=== PATIENT | female | born 1940 | race Asian ===

== ENCOUNTER 2016-10-13 09:21 | Inpatient (IN) | payer MEDICARE, BC ==
[~2016-10-13] VITALS: Ht 154.9 cm; Wt 42.0 kg
--- NOTE | ~2016-10-13 | CR72 ---
[facility] A Service of [facility] & [facility] RADIOLOGY TEXT RESULTS PATIENT: BALBIR COLLAZO LOCATION: [place] [address]- : 38 UNIT #: [id number] AGE: [address]: Jamir Roche MD SEX: F ORDER DR: [id number] [facility] [address] [place], [place] [address] [id number] I MR#: [id number] Acc #: [id number] NAME: BALBIR COLLAZO : 1940 SEX: F STUDY DATE/TIME: 10/16/2016 5:59 UNIT: [facility] ROOM: [facility] STUDY DESCRIPTION: CR Chest Single View Portable Attending Physician: Jamir Roche M.D. Ordering Physician: Rossy Ruiz M.D. Primary Care Physician: Celio George M.D. MEDICAL IMAGING REPORT This report is preliminary unless electronic signature is present EXAM Single view of the chest, 10/16/2016 at 05:59 hours COMPARISON Single view chest, 10/13/2016 at 10:24 hours HISTORY Colon cancer with COPD, shortness of air and cough for the last three days. FINDINGS Single view of the chest was obtained. Lungs are hyperinflated suggestive of emphysematous changes. Previously noted calcified right upper lobe lung nodule measuring 1.1 cm is again noted suggestive of old granulomatous disease. No superimposed significant new abnormality is seen. There is stable prominent irregular opacity noted in the left hilum. The CT angiogram chest from three days ago did demonstrate patchy alveolar infiltrate in the left upper lobe extending from the left hilum. The hilar appearance does not appear to have significantly changed when compared to the prior chest x-ray. Cardiac size is within normal limits. There is mild prominence of the interstitial markings, stable since prior study. No significant new abnormality. No pleural effusion or pneumothorax. Dictated by... Eleonora Britton M.D. THIS IS AN ELECTRONICALLY VERIFIED REPORT Eleonora Britton M.D. at 10/18/2016 5:22 PM CPR/isabel TD: 10/16/2016 10:46 [facility] A Service of [facility] & [facility] RADIOLOGY TEXT RESULTS PATIENT: BALBIR COLLAZO LOCATION: [address] 562-01 : 38 UNIT #: [id number] AGE: [address]: Jamir Roche MD SEX: F ORDER DR: JOB #: [id number] MEDICAL IMAGING REPORT Page 1 of 1 COPY
--- NOTE | ~2016-10-13 | CT16 ---
[facility] A Service of [facility] & [facility] RADIOLOGY TEXT RESULTS PATIENT: BALBIR COLLAZO LOCATION: [facility]- : 38 UNIT #: [id number] AGE: [address]: Jamir Roche MD SEX: F ORDER DR: [id number] [facility] [address] [place], [place] [address] [id number] I MR#: [id number] Acc #: [id number] NAME: BALBIR COLLAZO : 1940 SEX: F STUDY DATE/TIME: 10/13/2016 12:16 UNIT: [facility] ROOM: [facility] STUDY DESCRIPTION: CT Angio Chest for PE Attending Physician: Jamir Roche M.D. Ordering Physician: Chris Stanley D.O. Primary Care Physician: Celio George M.D. MEDICAL IMAGING REPORT This report is preliminary unless electronic signature is present EXAM CT angiogram chest with IV contrast HISTORY Left side chest pain today. Shortness of air for 2 days. Elevated D-dimer. TECHNIQUE IV contrast enhanced CT angiogram of the chest was performed with 3-D reconstructions. This CT exam was performed with one or more of the following radiation dose reduction techniques: automatic exposure control, adjustment of mA and/or kV according to patient size, and iterative reconstruction. FINDINGS There is no evidence of pulmonary embolus. Single, mildly enlarged aortopulmonic window lymph node measures 1.1 cm and could be reactive or inflammatory. Dense subsegmental infiltrate and probable associated atelectasis in the inferomedial left upper lobe extending to the anterior left hilum and corresponding to the perihilar density on chest x-ray earlier today. This could be secondary to pneumonia, but is nonspecific and short-term follow-up chest x-ray is recommended to document resolution after appropriate assessment and treatment. Extensive bilateral emphysema with moderate diffuse interstitial fibrotic scarring. Additional, more focal scarring in the lung apices. Calcified granuloma posterior right upper lobe. Small calcified mediastinal and hilar nodes. Normal caliber thoracic aorta. IMPRESSION 1. No evidence of pulmonary embolus. 2. Focal dense subsegmental infiltrate and probable associated STS. [facility] A Service of [facility] & [facility] RADIOLOGY TEXT RESULTS PATIENT: BALBIR COLLAZO [id number] 36 UNIT #: [id number] AGE: [address]: Jamir Roche MD SEX: F ORDER DR: atelectasis in the inferomedial left upper lobe abutting the anterior margin of the left hilum, corresponding to the abnormality on chest x-ray earlier today. This is nonspecific but could be due to pneumonia. Followup to resolution is recommended with repeat chest x-ray after appropriate assessment and treatment. 3. Single, mildly enlarged aortopulmonic window lymph node measures 1.1 cm and could be reactive or inflammatory. 4. Advanced bilateral emphysema. Dictated by... Roman Chu M.D. THIS IS AN ELECTRONICALLY VERIFIED REPORT Roman Chu M.D. at 10/14/2016 3:51 PM DFL/pcl TD: 10/14/2016 15:31 JOB #: [id number] MEDICAL IMAGING REPORT Page 1 of 1 COPY
--- NOTE | ~2016-10-13 | EKG ---
PATIENT: BALBIR COLLAZO UNIT #: [id number] Ventricular Rate: 82 BPM Atrial Rate: 82 BPM P-R Interval: 128 ms QRS Duration: 84 ms Q-T Interval: 338 ms QTC Calculation(Bezet): 394 ms P [place]: 81 degrees Calculated R [place]: 92 degrees Calculated T [place]: 60 degrees Diagnosis Line: Normal sinus rhythm Diagnosis Line: Rightward axis Diagnosis Line: Borderline ECG Diagnosis Line: When compared with ECG of 19-JAN-2016 12:22, Diagnosis Line: No significant change was found Diagnosis Line: Confirmed by DOMINGO ABDI MD ([id number]) on 10/14/2016 Diagnosis Line: 3:04:06 PM INTERPRETING MD: JIN STONER
--- NOTE | ~2016-10-13 | A ---
[facility] Nutrition Therapy DATE: 10/15/16 Patient: BALBIR COLLAZO Physician: FREDI Address: [address] [place] [address] DRIVE Room/Bed: [address] [place] [address], Zip: [place] [address] Admit Date: 10/13/16 Date of : 38 Height: 5 1 Weight: 87 39.5 NUTRITIONAL ASSESSMENT: REASON: Low BMI 76 yo female admitted for SOB PMH: COPD, Afib, HTN, anxiety, respiratory failure, colon cancer s/p resection Anthropometrics: Ht: 5'1" Wt: 43.2 kg BMI: 18.0 IBW: 47.7 kg, 91% IBW Labs: K+ 5.3 Gluc 153 BUN 28 Meds: Protonix, ferrous gluconate, prednisone therapeutic formula, Os-phill + D I/O & Bowel function: 2780/ 720, last BM 10/13 Skin Integrity: no breakdown or edema noted Estimated Nutrition Needs: Increased due to low body weight Diet: Heart healthy Assessment: Chart reviewed, events noted. 76 yo female admitted for SOB. Pt also noted to have 2-3 day h/o dysphagia, which seems to be d/t sore throat per MD note. Previous RD notes reviewed, as the pt has been seen by [facility] RDs for low BMI previously. Pt's weights seem to have remained stable since most recent previous admission. RD spoke with the pt at bedside. Pt reports having a good appetite, stating that she has had decreased intake over the last couple of days d/t dysphagia. Pt reportedly takes her dentures out to eat. RD offered to order the pt a soft diet, and the pt denied a need for this. Pt drinks one Ensure per day at home. RD encouraged the pt to drink Ensure BID to promote weight gain. Pt voiced understand, and denied having any questions about her diet. Dx: Underweight RT PMH AEB BMI 18.0, 91% IBW. Intervention: 1. Heart healthy diet 2. Ensure BID Monitoring, Evaluation and Goals: 1. Oral intake; tolerate 50-100% of meals and supplements 2. Improve labs; K+, glucose, BUN 3. Weight; promote gradual weight gain [facility] Nutrition Therapy DATE: 10/15/16 Patient: BALBIR COLLAZO Physician: FREDI Address: [address] Room/Bed: [address] [place] [address], Zip: [place] [address] Admit Date: 10/13/16 Date of : 38 Height: 5 1 Weight: 87 39.5 Recommendations: 1. Continue heart healthy diet as tolerated. 2. Ensure strawberry BID for supplemental nutrition. 3. If dysphagia continues, consider QUALITY ASSURANCE SPECIALIST evaluation. Pt is at mild-moderate nutrtional risk. RD will follow up per protocol. Respectfully, KIERAN DEAN RD, LD Food and Nutritional Services [facility] cc: client file
--- NOTE | ~2016-10-13 | CR63 ---
[facility] A Service of [facility] & [facility] RADIOLOGY TEXT RESULTS PATIENT: BALBIR COLLAZO LOCATION: [facility] 562-01 : 38 UNIT #: [id number] AGE: [address]: Jamir Roche MD SEX: F ORDER DR: [id number] [facility] [address] [place], [place] [address] [id number] I MR#: [id number] Acc #: [id number] NAME: BALBIR COLLAZO : 1940 SEX: F STUDY DATE/TIME: 10/19/2016 7:21 UNIT: [facility] ROOM: [facility] STUDY DESCRIPTION: CR Chest 2 View Attending Physician: Jamir Roche M.D. Ordering Physician: Rossy Ruiz M.D. Primary Care Physician: Celio George M.D. MEDICAL IMAGING REPORT This report is preliminary unless electronic signature is present EXAM PA lateral chest DATE 10/19/2016 HISTORY Shortness of breath and cough since 10/13/2016. COPD. Atrial fibrillation. Hypertension. Smoking history, quit in 2006. COMPARISON AP portable chest 10/16/2016 FINDINGS Advanced emphysematous changes are present. Left perihilar - suprahilar band-like opacity has a similar appearance on this examination, and is thought to correspond to focal dense left upper lobe airspace disease, which is also seen on the previous CT chest from 10/13/2016. This finding appears slightly improved when compared to the chest radiograph of 10/13/2016. No new airspace disease is identified. No pleural effusion, pneumothorax or acute osseous abnormalities. IMPRESSION 1. Left upper lobe perihilar/suprahilar airspace disease which may represent changes of pneumonia. There appears to be slight improved aeration at this location when compared to the chest radiograph from 10/13/2016. Continued short-term radiographic followup to document continued improvement or resolution would be recommended. 2. Advanced emphysema. 3. Benign calcified granulomatous changes. Dictated by... Ammy Quevedo M.D. [facility] A Service of [facility] & [facility] RADIOLOGY TEXT RESULTS PATIENT: BALBIR COLLAZO LOCATION: [facility]- : 38 UNIT #: [id number] AGE: [address]: Jamir Roche MD SEX: F ORDER DR: THIS IS AN ELECTRONICALLY VERIFIED REPORT Ammy Quevedo M.D. at 10/20/2016 1:54 PM [facility]/stanley TD: 10/19/2016 21:31 JOB #: [id number] MEDICAL IMAGING REPORT Page 1 of 1 COPY
--- NOTE | ~2016-10-13 | EKG ---
PATIENT: BALBIR COLLAZO UNIT #: [id number] Ventricular Rate: 60 BPM Atrial Rate: 60 BPM P-R Interval: 154 ms QRS Duration: 84 ms Q-T Interval: 420 ms QTC Calculation(Bezet): 420 ms P [place]: 75 degrees Calculated R [place]: 91 degrees Calculated T [place]: 61 degrees Diagnosis Line: Sinus rhythm with occasional Premature ventricular Diagnosis Line: complexes Diagnosis Line: Rightward axis Diagnosis Line: lead interchange V1 and V3 Diagnosis Line: Borderline ECG Diagnosis Line: No previous ECGs available Diagnosis Line: Confirmed by DOMINGO ABDI MD ([id number]) on 10/14/2016 Diagnosis Line: 3:14:06 PM INTERPRETING MD: JIN STONER
--- NOTE | ~2016-10-13 | CR72 ---
[facility] A Service of [facility] & [facility] RADIOLOGY TEXT RESULTS PATIENT: BALBIR COLLAZO LOCATION: [facility] 56- : 38 UNIT #: [id number] AGE: [address]: Jaimr Roche MD SEX: F ORDER DR: [id number] [facility] [address] [place], [place] [address] [id number] I MR#: [id number] Acc #: [id number] NAME: BALBIR COLLAZO : 1940 SEX: F STUDY DATE/TIME: 10/13/2016 10:24 UNIT: [facility] ROOM: [facility] STUDY DESCRIPTION: CR Chest Single View Portable Attending Physician: Jamir Rohce M.D. Ordering Physician: Chris Stanley D.O. Primary Care Physician: Celio George M.D. MEDICAL IMAGING REPORT This report is preliminary unless electronic signature is present EXAM Portable chest. HISTORY Shortness of breath and left-sided chest pain for the past two days. COMPARISON 01/19/2016. TECHNIQUE Single AP view of the chest was obtained. FINDINGS Heart size is normal and no abnormal mediastinal widening is seen. There is a mass-like density at the left hilum that was not seen on the previous examination. Malignancy is not excluded. It measures approximately 3 cm in diameter. I recommend chest CT for further evaluation. It could also represent an area of consolidating pneumonia. There is also infiltrate seen in the left lower lung field probably in the lingula along the left heart border. It was not noted before. The right lung is clear and unchanged. Emphysematous changes are noted. Vascular markings are normal. IMPRESSION Abnormal left side. There is a dense area of consolidation or mass at the left hilum measuring about 2.5 x 3 cm that could represent either dense consolidating pneumonia or a malignancy. There is also additional infiltrate along the left heart border. Recommend chest CT with contrast for further evaluation. The right lung is clear and emphysema is again noted. Dictated by... Too Manuel M.D. [facility] A Service of [facility] & [facility] RADIOLOGY TEXT RESULTS PATIENT: BALBIR COLLAZO LOCATION: [facility]- : 38 UNIT #: [id number] AGE: [address]: Jamir Roche MD SEX: F ORDER DR: THIS IS AN ELECTRONICALLY VERIFIED REPORT Too Manuel M.D. at 10/16/2016 7:22 AM NANDO/nick TD: 10/14/2016 14:25 JOB #: [id number] MEDICAL IMAGING REPORT Page 1 of 1 COPY
--- NOTE | ~2016-10-13 | HP ---
Unit #: [id number] #: [id number] Patient: BALBIR COLLAZO [id number] [address] [place], [place] [address] [id number] I MR#: [id number] NAME: BALBIR COLLAZO ROOM: 562 Age: 76 Sex: F Admission Date: 10/13/2016 : 1940 Attending Physician: Jamir Roche M.D. Primary Care Physician: Celio George M.D. HISTORY AND PHYSICAL Ms. Collazo is a 76-year-old female with a history of COPD, followed by my nurse practitioner Fatou, who now presents with increasing shortness of air. This has been about two to three days. She has had a cough. She has had a sore throat. She has had odynophagia and dysphagia but she adamantly says it has only been about three days. She has left sided chest pain. PAST MEDICAL HISTORY Significant for: 1. Hypertension. 2. COPD as mentioned. 3. Chronic hypoxemic respiratory failure, on home O2. 4. Colon cancer, status post resection. 5. Anxiety. 6. Paroxysmal atrial fibrillation. SURGERIES Include: 1. Colon resection. 2. Hysterectomy. 3. Right hip replacement. MEDICATIONS Medications on admission had included: 1. Duo-Nebs. 2. Tylenol p.r.n. 3. Amiodarone 200 mg daily. 4. Pradaxa 150 b.i.d. 5. Clonazepam b.i.d. 6. Budesonide 0.5 mg added to the nebulizer. It should be twice a day. 7. Metoprolol 25 mg, probably b.i.d. 8. Iron 45 mg daily which is not sounding correct. 9. Stiolto Respimat, should be two puffs once a day. 10. Centrum Silver daily. 11. Calcium daily. 12. Prednisone 2.5 mg per day. ALLERGIES Avelox. SOCIAL HISTORY She did smoke but she quit at least ten years ago. FAMILY HISTORY Unit #: [id number] #: [id number] Patient: BALBIR COLLAZO Significant for no lung disease. SYSTEMS REVIEW She had nausea. No vomiting, no diarrhea. Appetite fair but she can't swallow. She is denying leg swelling. All other systems are negative except as mentioned. She did complain of some abdominal pain. PHYSICAL EXAMINATION GENERAL APPEARANCE: She presents as an older female in no acute distress. VITAL SIGNS: Temperature was 99, pulse 78, respirations 24, blood pressure 129/63, saturation 98% on O2 2L. NECK: Without adenopathy. LUNGS: Evaluation of her lungs reveal that her breathing is not labored. She is actually fairly clear but may be mildly decreased breath sounds bilaterally. HEART: Presently regular ABDOMEN: Soft. She does have some mid abdomen tenderness. EXTREMITIES: Without edema. NEUROLOGICAL: She is awake and alert. DIAGNOSTIC STUDIES IMAGING: Her chest x-ray, to my exam, revealed a really vague left perihilar infiltrate. On the CAT scan, this infiltrate is clearly defined as a left upper lobe infiltrate consistent with a pneumonia. This does not look like a mass. This was done as a PE protocol and there is no evidence of PE. There was some evidence of emphysema. There is a density on the right side pleural base but I think it is calcified. LABORATORY: Serum chemistry is basically normal. Specifically, BUN 19, creatinine 0.8, glucose is 130. White blood cell count 12.4, H and H 13.8 and 41, 170,000 platelets. IMPRESSION 1. Left upper lobe pneumonia. 2. Emphysema. 3. COPD, which I think is fairly stable. 4. Dysphagia, etiology uncertain. I had looked at her posterior pharynx. I didn't see anything concerning. If she is correct, that is not trying to cover up for prison problem, this is only short term and could represent some type of pharyngitis. 5. Abdominal pain, etiology uncertain. PLAN Will treat her with IV Rocephin and IV Zithromax. She does not need quinolone and she is allergic to Avelox anyway. Dictated by Roberta Pickens/alex TD: 10/13/2016 16:06 JOB #: [id number] Unit #: [id number] #: [id number] Patient: BALBIR COLLAZO CC: Celio George M.D. HISTORY AND PHYSICAL Page 1 of 1 X Jamir Roche MD HISTORY AND PHYSICAL
--- NOTE | ~2016-10-13 | DS ---
Unit #: [id number] #: [id number] Patient: BALBIR COLLAZO [id number] [address] [address] [id number] I MR#: [id number] NAME: BALBIR COLLAZO ROOM: 562 Age: 76 Sex: F Admission Date: 10/13/2016 : 1940 Discharge Date: 10/19/2016 Attending Physician: Jamir Roche M.D. Primary Care Physician: Celio George M.D. DISCHARGE SUMMARY REASON FOR DISCHARGE Community-acquired pneumonia. HISTORY OF PRESENT ILLNESS This is a 76-year-old lady with a history of COPD, followed by Ms. Fatou Neal A.P.R.N. Now presents with increasing shortness of air. The patient has been followed for about 2-3 days. She has had worsening cough. She has had sore throat. She also has odynophagia and dysphagia for approximately 3 days. The patient is having left-sided chest pain. The patient was found to have increasing left-sided infiltrate on chest x-ray. Therefore, she was admitted for community-acquired pneumonia. HOSPITAL COURSE The patient had blood cultures, which showed positive Pneumococcus, intermediate sensitivity to Rocephin. Therefore, the patient was switched after 2 days from Rocephin and azithromycin, on which she was initially started, to vancomycin and Levaquin. On hospital day 6, the patient was changed over to oral antibiotics and discharged home. Despite spending a fair amount of time in bed, she was evaluated by physical therapy, decided that there was no indication for rehab. Due to the patient's history of a recent haemophilus influenza infection and the patient's risk for infectious/encapsulated organisms, the patient had IgG, IgM levels tested. The immunoglobulin M level was 31; therefore, the patient might need an immunologic workup to see if she has some inherent immune deficiency, including rechecking levels when she is seen again as an outpatient. DISCHARGE MEDICATIONS 1. Pulmicort neb 0.5 gram inhaled b.i.d. 2. DuoNeb t.i.d. and as needed. 3. Prednisone 2.5 mg daily. 4. Amiodarone 200 mg daily. 5. Acetaminophen 325 mg q.6 hours. 6. Dabigatran 150 mg p.o. daily. 7. Stiolto 2 puffs once a day. 8. Klonopin 0.25 mg p.o. b.i.d. 9. Metoprolol 25 mg b.i.d. 10. Iron, carbonyl tablet 45 mg p.o. daily. 11. Singular 10 mg every morning. 12. Complete multivitamin daily. 13. Calcium carbonate 600 mg daily. 14. Levaquin 750 mg p.o. daily for 7 days. DIET Regular as tolerated. Unit #: [id number] #: [id number] Patient: BALBIR COLLAZO ACTIVITY As tolerated. DIAGNOSES 1. Pneumococcal pneumonia. 2. Chronic obstructive pulmonary disease. 3. Possible immune deficiency. Dictated by... Roberta Gomez TD: 10/22/2016 11:43 JOB #: [id number] DISCHARGE SUMMARY Page 1 of 1 X Drew Ruiz MD X DISCHARGE SUMMARY
[~2016-10-13 09:21] MED LIST: AMLODIPINE BESYL5 MG PO; BREO ELLIPTA 11 EACH INH; BUDESONIDE0.5 MG/2 M INH; CALCIUM 600 +1 EA15 PO; CALTRATE 600+D PO; CEFTIN500 MG PO; CENTRUM SILVER PO; COMPLETE MULTI1 EACH PO; CORDARONE200 M1 PO; DOXYCYCLINE150 MG PO; HUMIBID-LA600 MG PO; IPRAT-ALBUT 0.5-3 ML INH; KLONOPIN0.5 M1 PO; KLONOPIN0.5 MG PO; LOPRESSOR PO; METOPROLOL TAR25 MG PO; MONTELUKAST SOD10 MG PO; OMNICEF300 M1 PO; PRADAXA150 MG PO; PREDNISONE10 MG PO; PREDNISONE10 MG/DOSE PO; PULMICORT0.5 MG/21 INH; SLOW RELEASE I250 M1 PO; SPIRIVA18 MCG INH; STIOLTO RESPIMAT4 GM INH; TYLENOL325 M1 PO; ZPAK
[2016-10-13 09:54] LABS: BASOPHIL# 0.1 X10e3 (0-0.3); BASOPHIL% 0.4 % (0-2.5); EOSINOPHIL% 0.2 % (0.0-7.0); HEMATOCRIT 41.8 % (35.0-45.0); HEMOGLOBIN 13.8 gm/dL (12.0-16.0); LYMPHOCYTE% 8.1 % (17.0-45.0); MEAN CELL VOLUME 93.2 FL (83-96); MEAN CORPUSCULAR HEMOGLOBIN 30.7 PG (28-34); MEAN CORPUSCULAR HGB CONC 32.9 g/dL (30-36); MEAN PLATELET VOLUME 9.1 FL (6.5-11.5); MONOCYTE# 0.9 X10e3 (0-1.0); MONOCYTE% 6.9 % (3.0-12.0); NEUTROPHIL# 10.5 X10e3 (1.5-7.1); NEUTROPHIL% 84.4 % (40-75); PLATELET COUNT 170 X10e3 (140-420); RED BLOOD COUNT 4.49 X10e (3.90-5.30); RED CELL DISTRIBUTION WIDTH 13.9 % (11.0-15.5); WHITE BLOOD COUNT 12.4 X10e3 (4.0-10.5)
[2016-10-13 09:55] LABS: DIFF IND NO
[2016-10-13] MEDS ORDERED: IRON45 MG PO (09:58)
[2016-10-13] MEDS ORDERED: AMIODARONE HCL200 MG PO (10:01)
[2016-10-13] MEDS ORDERED: TYL325 PO (10:01)
[2016-10-13] MEDS ORDERED: BUDESONIDE0.5 GM INH (10:02)
[2016-10-13] MEDS ORDERED: IPRATR-ALBUTEROL3 ML INH (10:02)
[2016-10-13 10:08] LABS: POC - CKMB <1.0 ng/mL (0.0-7.9); POC - TROPONIN <0.05 ng/mL (<=0.05)
[2016-10-13 10:33] LABS: ALBUMIN SERUM 3.5 g/dL (3.5-5.0); BILIRUBIN, DIRECT 0.2 mg/dL (0.0-0.2); BILIRUBIN,TOTAL 1.2 mg/dL (0.2-2.0); BUN/CREATININE RATIO 23.75; CALCIUM SERUM 8.7 mg/dL (8.4-10.2); CREATININE SERUM 0.8 mg/dL (0.6-1.4); GLOM FILT RATE Estimated 70.7 mL/min (>60); POTASSIUM 4.4 mmol/L (3.5-5.1); PROTEIN TOTAL SERUM 7.5 g/dL (6.0-8.3)
[2016-10-13 10:48] LABS: INR 1.2; PROTHROMBIN TIME (PATIENT) 13.3 SECONDS (10.0-11.7)
[2016-10-13 12:15] LABS: POC - CKMB <1.0 ng/mL (0.0-7.9); POC - TROPONIN <0.05 ng/mL (<=0.05)
[2016-10-13 14:03] LABS: URINE SOURCE CLEAN CATCH
[2016-10-13 14:10] LABS: URINE APPEARANCE CLEAR; URINE BILIRUBIN NEG (NEG); URINE BLOOD 2+ (NEG); URINE COLOR YELLOW; URINE GLUCOSE NEG (NEG); URINE KETONE 1+ (NEG); URINE LEUKOCYTE ESTERASE NEG (NEG); URINE NITRATE NEG (NEG); URINE PH 6.5 (5-8); URINE PROTEIN TRACE (NEG); URINE SPECIFIC GRAVITY 1.087 (1.003-1.035); URINE UROBILINOGEN 0.2 MG/DL (NEG)
[2016-10-13 14:14] LABS: U HYALINE CASTS AUWI 0-2 /[LPF]; URINE BACTERIA AUWI NEG (NEGATIVE); URINE SQUAMOUS EPITHELIAL CELL NONE SEEN /[HPF]; UWBCS1 AUWI 0-2 (0-5)
[2016-10-13 14:15] LABS: CULTURE INDICATED? NO
[2016-10-14 05:21] LABS: HEMATOCRIT 40.3 % (35.0-45.0); HEMOGLOBIN 13.1 gm/dL (12.0-16.0); MEAN CELL VOLUME 93.4 FL (83-96); MEAN CORPUSCULAR HEMOGLOBIN 30.4 PG (28-34); MEAN CORPUSCULAR HGB CONC 32.5 g/dL (30-36); MEAN PLATELET VOLUME 9.7 FL (6.5-11.5); RED BLOOD COUNT 4.31 X10e (3.90-5.30); RED CELL DISTRIBUTION WIDTH 13.9 % (11.0-15.5); WHITE BLOOD COUNT 11.8 X10e3 (4.0-10.5)
[2016-10-14 06:03] LABS: CALCIUM SERUM 9.2 mg/dL (8.4-10.2); CREATININE SERUM 0.9 mg/dL (0.6-1.4); GLOM FILT RATE Estimated 61.3 mL/min (>60); POTASSIUM 5.1 mmol/L (3.5-5.1)
[2016-10-15 08:37] LABS: CALCIUM SERUM 8.8 mg/dL (8.4-10.2); CREATININE SERUM 0.8 mg/dL (0.6-1.4); GLOM FILT RATE Estimated 70.7 mL/min (>60); POTASSIUM 5.3 mmol/L (3.5-5.1)
[2016-10-16 06:37] LABS: HEMATOCRIT 38.4 % (35.0-45.0); HEMOGLOBIN 12.5 gm/dL (12.0-16.0); MEAN CELL VOLUME 93.3 FL (83-96); MEAN CORPUSCULAR HEMOGLOBIN 30.5 PG (28-34); MEAN CORPUSCULAR HGB CONC 32.7 g/dL (30-36); MEAN PLATELET VOLUME 9.3 FL (6.5-11.5); RED BLOOD COUNT 4.11 X10e (3.90-5.30); RED CELL DISTRIBUTION WIDTH 13.7 % (11.0-15.5); WHITE BLOOD COUNT 8.8 X10e3 (4.0-10.5)
[2016-10-16 07:17] LABS: BUN/CREATININE RATIO 27.77; CALCIUM SERUM 8.7 mg/dL (8.4-10.2); CREATININE SERUM 0.9 mg/dL (0.6-1.4); GLOM FILT RATE Estimated 61.3 mL/min (>60); POTASSIUM 4.8 mmol/L (3.5-5.1)
[2016-10-17 07:12] LABS: HEMATOCRIT 38.4 % (35.0-45.0); HEMOGLOBIN 12.8 gm/dL (12.0-16.0); MEAN CELL VOLUME 92.7 FL (83-96); MEAN CORPUSCULAR HEMOGLOBIN 30.8 PG (28-34); MEAN CORPUSCULAR HGB CONC 33.3 g/dL (30-36); MEAN PLATELET VOLUME 9.1 FL (6.5-11.5); RED BLOOD COUNT 4.14 X10e (3.90-5.30); RED CELL DISTRIBUTION WIDTH 13.8 % (11.0-15.5); WHITE BLOOD COUNT 6.9 X10e3 (4.0-10.5)
[2016-10-17 07:36] LABS: CALCIUM SERUM 8.8 mg/dL (8.4-10.2); CREATININE SERUM 0.6 mg/dL (0.6-1.4); GLOM FILT RATE Estimated 87.3 mL/min (>60); POTASSIUM 4.7 mmol/L (3.5-5.1)
[2016-10-18 06:49] LABS: BASOPHIL% 0.2 % (0-2.5); EOSINOPHIL# 0.3 X10e3 (0-0.7); EOSINOPHIL% 3.4 % (0.0-7.0); HEMATOCRIT 37.3 % (35.0-45.0); HEMOGLOBIN 12.3 gm/dL (12.0-16.0); LYMPHOCYTE# 1.3 X10e3 (1.0-3.5); LYMPHOCYTE% 14.9 % (17.0-45.0); MEAN CELL VOLUME 92.9 FL (83-96); MEAN CORPUSCULAR HEMOGLOBIN 30.6 PG (28-34); MEAN CORPUSCULAR HGB CONC 32.9 g/dL (30-36); MEAN PLATELET VOLUME 8.6 FL (6.5-11.5); MONOCYTE# 0.8 X10e3 (0-1.0); MONOCYTE% 8.9 % (3.0-12.0); NEUTROPHIL# 6.1 X10e3 (1.5-7.1); NEUTROPHIL% 72.6 % (40-75); PLATELET COUNT 303 X10e3 (140-420); RED BLOOD COUNT 4.02 X10e (3.90-5.30); RED CELL DISTRIBUTION WIDTH 13.9 % (11.0-15.5); WHITE BLOOD COUNT 8.4 X10e3 (4.0-10.5)
[2016-10-18 06:50] LABS: DIFF IND YES
[2016-10-18 07:05] LABS: PLATELET ESTIMATE NORMAL (NORMAL); RBC NORMAL YES
[2016-10-18 07:36] LABS: BUN/CREATININE RATIO 37.14; CALCIUM SERUM 8.9 mg/dL (8.4-10.2); CREATININE SERUM 0.7 mg/dL (0.6-1.4); POTASSIUM 5.3 mmol/L (3.5-5.1)
[2016-10-19 06:43] LABS: BUN/CREATININE RATIO 24.44; CALCIUM SERUM 9.1 mg/dL (8.4-10.2); CREATININE SERUM 0.9 mg/dL (0.6-1.4); GLOM FILT RATE Estimated 61.3 mL/min (>60); POTASSIUM 5.4 mmol/L (3.5-5.1)
[2016-10-19] MEDS ORDERED: LEVAQUIN750 MG PO (17:31)
== END 2016-10-19 18:15 | disposition home or self-care (01) | DRG 871 ==
LOC: CED 09:21 → C5B 16:49
PROVIDERS: Emergency Medicine; Internal Medicine Pulmonary Disease
PROC: B32TYZZ Computerized Tomography (CT Scan) of Left Pulmonary Artery using Other Contrast (ICD-10-PCS; principal; 2016-10-13)
PROC: B32SYZZ Computerized Tomography (CT Scan) of Right Pulmonary Artery using Other Contrast (ICD-10-PCS; 2016-10-13)
DX: A40.3 Sepsis due to Streptococcus pneumoniae (principal); J13 Pneumonia due to Streptococcus pneumoniae; D84.9 Immunodeficiency, unspecified; J44.0 Chronic obstructive pulmonary disease with (acute) lower respiratory infection; R13.19 Other dysphagia; E44.1 Mild protein-calorie malnutrition; Z68.1 Body mass index [BMI] 19.9 or less, adult; Z87.891 Personal history of nicotine dependence; I10 Essential (primary) hypertension; R10.9 Unspecified abdominal pain; E87.5 Hyperkalemia; Z96.641 Presence of right artificial hip joint; Z90.49 Acquired absence of other specified parts of digestive tract; Z90.710 Acquired absence of both cervix and uterus
CPT/HCPCS: 36415; 71010; 71020; 71275; 80048; 80076; 80202; 81003; 82553; 82784; 83605; 83690; 84484; 85025; 85027; 85379; 85610; 85730; 87040; 87070; 87077; 87186; 87205; 90670; 93005; 94640; 94760; 96374; 97161; 99285; G8978-GP; G8979-GP; G8980-GP; J0456; J0696; J1956; J2930; J3370; Q9967